=== PATIENT | male | born 1980 | race Caucasian/White ===

== ENCOUNTER 2023-02-19 12:58 | Day surgery (SDC) | payer OTHER ==
[2023-02-15 11:55] VITALS: BMI 34.7
[2023-02-19] MEDS ORDERED: SODIUM CHLORIDE 0.9% 1,000 ML IV ONE (14:12)
[2023-02-19] MEDS ORDERED: LIDOCAINE 1% INJ 10MG/ML (20 ML MDV) ONE (14:44)
[2023-02-19] MEDS ORDERED: ONDANSETRON 4 MG/2 ML VIAL ONE (14:46)
[2023-02-19] MEDS ORDERED: PHENYLEPHRINE-0.9% NACL SYG 1,000 MCG/10 ML SYRINGE ONE (14:46)
[2023-02-19] MEDS ORDERED: PROPOFOL 10 MG/ML 20 ML VIAL IV ONE (14:46)
[2023-02-19] MEDS ORDERED: MIDAZOLAM 2 MG/2 ML VIAL ONE (14:46)
[2023-02-19] MEDS ORDERED: ISOPROTERENOL 250 MCG/1.25 ML SYR IV ONE (14:46)
[2023-02-19] MEDS ORDERED: fentaNYL (PF) 50 MCG/ML 2 ML AMP ONE (14:46)
[2023-02-19] MEDS ORDERED: LIDOCAINE 1% INJ 10MG/ML (30 ML VIAL-PF) SQ ONE (15:54)
[2023-02-19] MEDS ORDERED: ACETAMINOPHEN TAB 325 MG TAB PO PRN (18:07)
--- NOTE | 2023-02-19 18:18 | P.EPPROC ---
- EP Procedure Note Electrophysiology Procedure Note: Diagnosis Recurrent SVT Final diagnosis AV node reentrant tachycardia Status post successful slow pathway ablation, tachycardia rendered noninducible Occasional single echo beats Inducible paroxysmal atrial fibrillation, brief less than 5-10 seconds Inducible atrial tachycardia, nonsustained Details Patient was brought to the EP lab in a fasting state. Written informed consent was obtained prior to the procedure did consciousness sedation provided by anesthesia Diagnostic catheters placed via the right and left femoral vein sheaths in the high right atrium, Wyatt sinus, His bundle area and right ventricle Sinus cycle length 990 ms, AR interval 161 ms, QRS 180 ms and QT 391 ms AH 69 and HV 48 ms Sinus node recovery time@600 ms was 1205 ms Thereafter high right atrial pacing would induce AV node reentry very easily with straight pacing SVT induced with straight pacing Short septal time VAAV response Post-pacing interval minus tachycardia cycle length around 190 ms VA Wenckebach block 230 ms Parahisian pacing revealed ricardo response Long sheaths placed along with an irrigated tip catheter During SVT entrainment performed with PACs, His refractory Outside and anterior to the coronary sinus, a critically timed PACs resulted in prolongation of antegrade conduction time during AV node reentry,SITE 1 At the coronary sinus os, a critically timed PVC resulted in advanced into the tachycardia, SITE 2 Successful RF ablation performed just above SITE 1. Junctional rhythm obtained As the catheter was moved towards the coronary sinus os complete elimination of the slow pathway noted Thereafter SVT could not be induced Occasional evidence of antegrade slow pathway conduction with a single echo beats noted during atrial extra stimulation Not noted with straight pacing from the high right atrium and the Wyatt sinus VA Wenckebach block to 60 ms Testing performed on Isuprel Straight pacing and extra stimulation of double extrastimuli performed from the high right atrium, Wyatt sinus and right ventricle No inducible SVT All sheaths and catheters removed and access sites sealed with Vascade closure device successfully
--- NOTE | 2023-02-19 18:23 | P.HPCAR ---
History of Present Illness This is Dr. Castellano dictating an H/P on this patient The patient was interviewed and examined IMPRESSION / ASSESSMENT: Recurrent SVT despite beta blockers, recurrent SVT up to 190 beats a minute failed metoprolol, paroxysmal Not responsive to the Valsalva maneuver Normal TSH Normal stress test Normal 2-D echo PLAN: Diagnostic EP study and possible radiofrequency ablation Discontinuation of beta blockers thereafter HPI Patient continues to have episodes of palpitations some short and others long There not responsive to medical treatment nor did he respond to the Valsalva maneuver He has not had any syncopal spells recently No chest pain no undue shortness of breath no cough expectoration no fever chills No new symptoms ROS: No fever chills or rigors, no cough, phlegm or expectoration, no nausea, vomiting or diarrhea, no hematuria, dysuria, no musculoskeletal complaints, no strokes or seizures, no skin lesions. EXAMINATION: Blood pressure 139/76 mmHg pulse rate in the 70s Afebrile Breath sounds are clear no rhonchi no crackles Heart sounds S1-S2 normal Lungs are clear auscultation no rhonchi no crackles No lower extremity edema Soft abdomen nontender No JVD REVIEW OF LABS, ECG & MEDICAL DATA Atorvastatin and metoprolol for medications Physical Exam Vitals: Vital Signs Temp Pulse Resp BP Pulse Ox 02/19/23 18:12 98.3 F 70 16 110/69 98 02/19/23 14:00 77 18 139/76 98 Intake and Output 02/19/23 02/19/23 02/19/23 06:59 14:59 22:59 Intake Total 925 0 Balance 925 0 Intake: IV 925 0 Other: Weight 121.3 kg Past Medical History Past Medical History: Hyperlipidemia, Hypertension History of Any Multi-Drug Resistant Organisms: None Reported Past Surgical History: Joint Replacement Additional Past Surgical History / Comment(s): RT TKA Past Anesthesia/Blood Transfusion Reactions: No Reported Reaction Smoking Status: Never smoker - Past Family History Mother Family Medical History: No Reported History Physical Examination Vital Signs Temp Pulse Resp BP Pulse Ox 02/19/23 18:12 98.3 F 70 16 110/69 98 02/19/23 14:00 77 18 139/76 98 Intake and Output 02/19/23 02/19/23 02/19/23 06:59 14:59 22:59 Intake Total 925 0 Balance 925 0 Intake: IV 925 0 Other: Weight 121.3 kg Results Current Medications Generic Name Dose Route Start Last Admin Trade Name Freq PRN Reason Stop Dose Admin Acetaminophen 650 mg 02/19/23 18:07 Acetaminophen Tab 325 Mg Tab PO 03/21/23 18:08 Q6HR PRN Mild Pain (Scale 1 to 3) Atorvastatin Calcium 40 mg 02/20/23 09:00 Atorvastatin 40 Mg Tab PO 03/22/23 09:01 DAILY ELENA Sodium Chloride 1,000 mls @ 20 mls/hr 02/19/23 05:44 Saline 0.9% IV 03/21/23 05:45 .Q24H ELENA Acetaminophen 1,000 mg/ IV 100 mls @ 400 mls/hr 02/19/23 18:07 Solution IVPB 02/19/23 18:21 ONCE ONE Sodium Chloride 12 ml 02/19/23 18:07 Sodium Chloride 0.9% Flush 10 Ml Syringe IV 03/21/23 18:08 Q12HR PRN Line Flush Intake and Output 02/19/23 02/19/23 02/19/23 06:59 14:59 22:59 Intake Total 925 0 Balance 925 0 Intake: IV 925 0 Other: Weight 121.3 kg Patient Weight 02/20/23 06:59 Weight 121.3 kg
[2023-02-19] MEDS: ACETAMINOPHEN IV (For NPO) 1,000 MG in EMPTY BAG 1 BAG IVPB ONE ×3 (19:15→19:45)
[2023-02-19] MEDS: SODIUM CHLORIDE 0.9% 1,000 ML IV SCH (21:46)
[2023-02-20] MEDS: SODIUM CHLORIDE 0.9% 1,000 ML IV SCH (05:57)
[2023-02-20] MEDS ORDERED: ATORVASTATIN 40 MG TAB PO SCH (09:00)
--- NOTE | 2023-02-20 13:39 | P.DS ---
Providers Attending physician: Francisco Castellano Primary care physician: Ed Herndonhven [facility] Course: This is a 42-year-old male who underwent SVT ablation yesterday with Dr. Castellano. Patient is doing well post procedure. Patient denies chest pain or pressure. He denies shortness of breath. Bilateral groins are soft with no hematoma noted. Patient has been up ambulating in the room without difficulty. Vital signs are stable. The patient was deemed stable for discharge home today per Dr. Castellano. The patient is to discontinue his metoprolol per Dr. Castellano. Please see EMR for further hospital course details. Discharge diagnosis #1 SVT, status post ablation #2 hyperlipidemia Nurse practitioner note has been reviewed by physician. Signing provider agrees with the documented findings, assessment, and plan of care. Plan - Discharge Summary Discharge Rx Participant: No New Discharge Prescriptions: Discontinued Metoprolol Tartrate [Lopressor] 25 mg PO BID No Action Atorvastatin [Lipitor] 40 mg PO DAILY Discharge Medication List Atorvastatin [Lipitor] 40 mg PO DAILY 02/15/23 [History] Follow up Appointment(s)/Referral(s): Francisco Castellano MD [STAFF PHYSICIAN] - 2 Weeks (Follow-up with Demetria Toribio np / Dr. Castellano) Activity/Diet/Wound Care/Special Instructions: Post EP study - Ablation instructions 1. Keep access sites dry for 2 days. 2. No heavy lifting or straining for 2 days. 3. Avoid bending the hips repeatedly for 2 days. 4. You may go up and down stairs slowly Call if the following is noted 1. Bleeding, increasing swelling or pain at the access sites. 2. Increasing chest discomfort, especially upon taking a deep breath. 3. Increasing shortness of breath, at rest or with exertion. 4. Undue cough / phlegm 5. Difficulty or pain while swallowing. 6. Pain or change in color in the extremities. 7. Fever, chills, rigors. 8. Increasing headache or neurologic symptoms. 9. Dizziness, fainting, palpitations Discharge Disposition: HOME SELF-CARE
[2023-02-20 15:44] VITALS: BP 121/73; PULSE 76; RESP 18; TEMP 98.2
--- NOTE | 2023-02-20 22:12 | CONS ---
CONSULTATION Patient of Dr. Castellano. CHIEF COMPLAINT: Supraventricular tachycardia. HISTORY OF PRESENT ILLNESS: This is another admission for this 42-year-old white male. He was found to have persistent supraventricular tachycardia and was brought in by Cardiology for cardioversion. REVIEW OF SYSTEMS: He denies any syncope, dizziness, chest pain, orthopnea, PND, abdominal pain, etc. Past medical history, family history, personal and social histories can all be found in his previous records as well as his admitting note. He has been on Toprol XL 100 mg once a day and atorvastatin 40 mg once a day. He has no allergies. He does not smoke. He drinks alcohol occasionally. The only surgical history that he has is one of right knee replacements. PHYSICAL EXAMINATION: VITAL SIGNS: Blood pressure 136/85, pulse of 84 and regular, respirations 16. He is afebrile. GENERAL: He appeared to be well developed, well nourished, no acute distress. SKIN: Color is normal. Skin is warm and dry. LYMPHATICS: Lymph nodes are not enlarged. HEAD, EARS, EYES, NOSE, MOUTH AND THROAT: Normal. NECK: Neck veins are not distended. CHEST: Clear. CARDIAC: Normal and sounds like he is in sinus rhythm. ABDOMEN: Soft, nontender. EXTREMITIES: Normal. NEUROLOGICAL: He is intact. ASSESSMENT: Admitted to hospital with diagnosis of supraventricular tachycardia. RECOMMENDATIONS: None. He seems to be doing well. Thank you respectfully, GILDA / JENNI: [id number] /
--- NOTE | 2023-02-20 22:57 | PN ---
PROGRESS NOTE DATE OF SERVICE: 02/20/2023 CHIEF COMPLAINT: Cardiac arrhythmia. HISTORY OF PRESENT ILLNESS: This gentleman is doing well. Expects to go home today. PHYSICAL EXAMINATION: CHEST: Clear. CARDIAC: Sounds normal with sinus rhythm. ABDOMEN: Soft, nontender. IMPRESSION: Supraventricular tachycardia. PLAN: Probably home today. MMODL / IJN: [id number] /
== END 2023-02-20 16:04 | disposition home or self-care (01) ==
LOC: CATHEP 12:58 → EDSEX 15:00 → 3SCARD 17:50 → CATHEP 02-20 16:04
PROVIDERS: ATTEND Internal Medicine Clinical Cardiac Electrophysiology
DX: I47.1 Supraventricular tachycardia (principal); I48.0 Paroxysmal atrial fibrillation; I44.1 Atrioventricular block, second degree; Z79.899 Other long term (current) drug therapy
CPT/HCPCS: 93653; 93623; 86900; 86901; 86850; C1894; C1769; C1760; C1730 ×3; C1893; C1732; J2001; J0131

== ENCOUNTER → 2023-09-20 | Outpatient (CLI) | payer OTHER ==
--- NOTE | 2023-09-20 10:26 | CA ---
Exercise Stress Test Report Name: Ricky Chavez Exam Date: 09/20/2023 09:09 Exam Location: [place] Stress Ht (in): 75 Wt (lb): 265 BSA: 2.47 Ordering Phys: Katelyn Rivera MD Referring Phys: KATELYN RIVERA,, Technologist: ABRAN Age: 42 Gender: M : 1980 Procedure CPT: Indications: I48.0 AFIB ICD-10 Codes: Patient History: PALPITATIONS Medications: Meds past 24 hrs: Pretest Chest Pain: STRESS TEST Alex Protocol Exercise Duration (min:sec): 11:[address] Depressions (mm): Angina Score: Espitia Score: Resting HR (bpm): 89 Peak HR (bpm): 149 Resting BP (mmHg): 144 / 90 Peak BP (mmHg): 210 / 102 MPHR: 176 Target HR: 150 % MPHR: 85 METS: 11.7 Total Dose: Peak Dose: Atropine: Double Product: 98672 BP Response: Stress Termination: MAX EXERTION/TARGET HR Stress Symptoms: NO SYMPTOMS Stress Summary: ECG ANALYSIS Resting ECG: Normal sinus rhythm, normal axis, heart rate 98 beats a minute Stress ECG: No significant ST-T wave changes that are diagnostic for ischemia by ST segment analysis. There were no ectopic beats or sustained arrhythmias CONCLUSIONS Overall good exercise tolerance for patient's age achieving 11.7 METS Normal clinical response to exercise Hypertensive response to exercise Nonischemic ECG response to exercise Overall normal treadmill stress test Dr Octavio Johnson (Electronically Signed) Final Date: 20 September 2023 10:25
== END | disposition home or self-care (01) ==
LOC: RADNMMAIN 08:14
PROVIDERS: ATTEND Internal Medicine Clinical Cardiac Electrophysiology
DX: I48.0 Paroxysmal atrial fibrillation (principal); R00.2 Palpitations
CPT/HCPCS: 93017